=== PATIENT | female | born 1965 | race Caucasian/White ===

== ENCOUNTER 2019-02-21 12:35 | Emergency (ER) | payer SELFPAY, MEDICAID ==
[2019-02-21 14:09] LABS: URINE PH (Dip) POC 5.5 (5.0-8.5)
[2019-02-21 14:09] LABS: URINE BLOOD (Dip) POC 2+ (NEGATIVE); URINE KETONES (Dip) POC Negative (NEGATIVE); URINE LEUKOCYTE EST (Dip) POC Negative (NEGATIVE); URINE NITRITE (Dip) POC Negative (NEGATIVE); URINE TOTAL PROTEIN POC Negative (NEGATIVE)
== END 2019-02-21 14:33 | disposition home or self-care (01) ==
LOC: FTE 12:35
DX: Z78.0 Asymptomatic menopausal state (principal); Z32.02 Encounter for pregnancy test, result negative
CPT/HCPCS: 81003; 81025; 99282